=== PATIENT | female | born 2000 | race Caucasian/White ===

== ENCOUNTER 2021-06-06 15:20 | Emergency (ER) | payer OTHER, SELFPAY ==
--- NOTE | 2021-06-06 15:33 | ED.NAVMDI ---
HPI - Nausea/Vomiting/Diarrhea General Chief complaint: Nausea/Vomiting/Diarrhea Stated complaint: diarrhea Time Seen by Provider: 06/06/21 15:40 Source: patient and RN notes reviewed Mode of arrival: ambulatory Limitations: no limitations History of Present Illness HPI Narrative: Ewa is a 21-year-old female patient who ambulated into the [facility]. Patient is stationed at the [employer]. Patient states she has a history of diarrhea and constipation. Patient had an EGD colonoscopy on 05/24/2021. Patient states the EGD showed irritation to her stomach. Patient her colonoscopy was negative for Crohn's or ulcerative ulcerative colitis. Patient states she has had decreased appetite for the last 4 to 6 weeks. Patient states she has had 4-6 the last 2 days. Patient states she has a decreased appetite. Patient states she is here because she needs a referral from a physician to be able to return to her GI specialist for treatment. Patient has been sick prescribed dicyclomine and Lomotil for diarrhea.. Patient states she has diarrhea with bile in her stools. Patient states it started green and floats. MD elicited complaint: diarrhea Related Data Home Medications Medication Instructions Recorded Confirmed Lomotil 06/06/21 dicyclomine 06/06/21 omeprazole [Prilosec] 20 mg PO DAILY 06/06/21 06/06/21 Allergies Allergy/AdvReac Type Severity Reaction Status Date / Time No Known Allergies Allergy Verified 06/06/21 15:43 Review of Systems Review of Systems: CONSTITUTIONAL: Denies body aches, fever, chills, or sweats. EYES: Denies visual changes, redness, or discharge. ENT: Denies rhinorrhea, congestion, sore throat, or otalgia. CARDIOVASCULAR: Denies chest pain, palpitations, or edema. RESPIRATORY: Denies cough or dyspnea. GASTROINTESTINAL: Denies abdominal pain, nausea, vomiting,+diarrhea. GENITOURINARY: Denies dysuria or hematuria. SKIN: Denies rash, itching, or wounds. MUSCULOSKELETAL: Denies back pain, joint pain, or myalgia. NEUROLOGIC: Denies headache, numbness, tingling, or weakness. PSYCH: Denies depression or anxiety. All systems reviewed & are unremarkable except as noted in HPI and below PMFSH Comments At time of signature, I have reviewed and agree with nursing past medical, surgical, social and family history unless otherwise noted. Please see nursing chart for further information. There is no relevant family history pertinent to the presenting complaint Exam Narrative: GENERAL: Well-appearing, well-nourished, and in no acute distress. HEAD: Normocephalic, atraumatic. EYES: EOMI. No redness or drainage. Conjunctivae normal. ENT: Mucous membranes pink and moist. Nares clear. No rhinorrhea. TMs normal bilaterally. Throat normal. Uvula midline. NECK: Normal AROM. Supple. No lymphadenopathy. CHEST: No respiratory distress. Clear to auscultation. HEART: Regular rate and rhythm. No murmur appreciated. Normal peripheral pulses. ABDOMEN: Soft, nontender, nondistended, normal active bowel sounds; MUSCULOSKELETAL: No bony tenderness. EXTREMITIES: Normal range of motion. No edema. SKIN: Warm, dry, no rash. Capillary refill normal. Normal skin turgor. NEURO: No focal deficits. Alert and oriented x3. Gait steady. PSYCH: Normal affect. No signs of depression or anxiety. Course Course Emergency Course: Patient looks and examined. Patient's mucous membranes are pink and moist. Patient's abdomen is soft, nondistended, with bowel sounds x4. Patient had an EGD and colonoscopy on 05/24/21. She was prescribed Dicyclomine and lomotil by [facility]. Instructed patient to take Lomotil as directed. Patient instructed to follow-up with her GI physician tomorrow and make an appointment to be seen patient instructed to follow a bland diet and to increase her fluid intake Vital Signs Vital signs: Reviewed MDM - Nausea/Vomiting/Diarrhea MDM Narrative Medical decision making narrative: P
[2021-06-06 15:36] VITALS: BP 113/62; PULSE 72; RESP 20; TEMP 36.2; O2SAT 99
== END 2021-06-06 16:01 | disposition home or self-care (01) ==
PROVIDERS: Emergency Provider Nurse Practitioner Family; PCP Internal Medicine Gastroenterology
DX: K59.1 Functional diarrhea (principal)
CPT/HCPCS: 99202; G0463